=== PATIENT | female | born 1975 | race Caucasian/White ===

== ENCOUNTER → 2022-10-02 16:38 | Outpatient (CLI) | payer OTHER, SELFPAY | PROVIDERS: PCP Student in an Organized Health Care Education/Training Program; Visit Provider Specialist | DX: N30.10 Interstitial cystitis (chronic) without hematuria (principal); N81.2 Incomplete uterovaginal prolapse | CPT/HCPCS: 87086 ==

== ENCOUNTER 2022-12-12 12:21 | Day surgery (SDC) | payer OTHER, SELFPAY ==
[2022-12-10 11:58] VITALS: BMI 32.3
[2022-12-12] VITALS (14 sets, daily range): BP systolic 95–129; BP diastolic 34–72; PULSE 72–96; RESP 12–16; TEMP 34.9–36.7; O2SAT 92–99; BMI 33.1
--- NOTE | 2022-12-12 | PATH_ITS ---
[facility] Accession Number: [id number] No. of containers..01 Tissue . 01 Material submitted: . uterus - UTERUS, BILATERAL TUBES AND OVARIES . 01 Diagnosis: Uterus, Cervix, Left And Right Fallopian Tubes And Ovaries, Hysterectomy And Bilateral Salpingo-Oophorectomy: Cervix: Nabothian cysts. Endometrium: Proliferative with focal inflammation suggestive for breakdown changes. Myometrium: Leiomyoma without significant atypia. Left fallopian tube: Focal involvement by endometriosis. Left ovary: Multiple endometriotic cysts and single epidermoid cyst. Right fallopian tube: No significant pathologic abnormalities. Right ovary: Endometriotic cyst. [facility] 12/18/2022 1101 Local . 01 Electronically signed: . Clementine Roa MD, Pathologist NPI- [id number] . 01 Gross description: . The specimen is received in formalin labeled with the patient's name, , and uterus, bilateral tubes, and ovaries, and consists of an intact uterus (119 grams, 9.3 cm superior to inferior, 6.5 cm medial to lateral, and 4.5 cm anterior to posterior) with attached cervix (4.0 x 2.9 cm), left fallopian tube (3.6 x 0.8 cm), left ovary (19 grams, 4.6 x 3.2 x 2.4 cm), right fallopian tube (3.2 x 0.5 cm), and right ovary (3 grams, 2.6 x 1.6 x 1.4 cm). The ectocervix is delarosa and finely granular with a slit-like os measuring 1.3 cm in greatest dimension. The anterior paracervical margin is inked blue while the posterior paracervical margin is inked black. The serosa is slightly roughened with a hemorrhagic area measuring 2.9 cm in greatest dimension. The endocervical canal has delarosa herringbone mucosa and measures 2.5 cm in length. The endometrial cavity measures 1.5 cm from cornu to cornu, and 3.5 cm in length with red velvety endometrium. The myometrium is delarosa and trabecular with a single well-circumscribed white whorled nodule measuring 1.8 cm in greatest dimension with no hemorrhage or necrosis identified. . The left fallopian tube has wrinkled violaceous serosa with no cystic structures identified, and sectioning reveal an unremarkable stellate lumen. The left ovary has a delarosa, roughened external surface that is inked green, and sectioning reveals to large cystic structures with thin, smooth gonzales filled with red-brown semi-solid material, the first measures 2.1 x 2.1 x 1.7 cm while the second measures 1.7 x 1.6 x 1.5 cm. A third cystic structure is identified measuring 1.0 x 0.9 x 0.8 cm and is filled with yellow grumous material. The remaining cut surface is delarosa with no discrete lesions grossly identified. . The right fallopian tube has violaceous smooth serosa with no cystic structures identified, and sectioning reveals and unremarkable stellate lumen. The right ovary has a delarosa, smooth external surface, and sectioning reveals a thin, smooth-walled cystic structure filled with red-brown semi-solid material measuring 0.5 x 0.4 x 0.2 cm. The remaining cut surface is physiologic and unremarkable. . Journeyman Wireman sections are submitted as follows: A1: Anterior cervix. A2: Posterior cervix. A3: Anterior full thickness section. A4: Posterior full thickness section. A5: Serosa. A6: Journeyman Wireman nodule. A7: Left fallopian tube to include one-half of bisected fimbriae and cross sections. A8: Left ovary, first cystic structure. A9: Left ovary, second cystic structure. A10: Left ovary, third cystic structures and additional cut surface. A11: Right fallopian tube to include one-half of bisected fimbriae and cross-sections. A12: Right ovary. ([id number]) /MRV 12/13/2022 1233 Local . 01 Pathologist provided ICD-10: N83.209 . 01 CPT . 533032 Specimen Comment: A courtesy copy of this report has been sent to [phone] Performed at: 01 [facility] [address], [place], [place] [id number] MD Ramone Chowdhury MD Phone: [phone]
[2022-12-12] MEDS: LACTATED RINGERS 1,000 ML 100 ML IV ×2 (13:01→18:04)
--- NOTE | 2022-12-12 13:20 | PM.PREOP ---
Pre-operative Note COVID-19 Criteria for continued procedure: Expected advancement of disease process Interval Note History & Physical reviewed/Exam performed by Physician: Yes Changes to H&P: No
[2022-12-12] MEDS: SCOPOLAMINE 1 PATCH TOP (13:34)
[2022-12-12] MEDS: CEFAZOLIN 2 GM/100 ML PREMIX 100 ML IV (13:40)
--- NOTE | 2022-12-12 14:20 | SUR.OPER ---
Lithotomy on padded OR bed. [place] Pad Positioner under torso. Head on pillow, arms padded and tucked at sides. Legs secured in padded yellow fins stirrups.
[2022-12-12] MEDS: BUPIVACAINE 0.5% (PF) 30 ML, EPINEPHrine 0.15 MG INJ (14:33)
[2022-12-12] MEDS: LACTATED RINGERS 1,000 ML 42 ML IV (16:32)
--- NOTE | 2022-12-12 16:40 | P.OP_ITS ---
Operative Date/Time/Diagnoses Date of procedure: 12/12/22 Time of procedure: 16:40 Pre-op diagnosis: Urinary mixed incontinence, partial uterovaginal prolapse, pelvic pain, probable endometrioma on ultrasound Post-op diagnosis: same Procedure & Clinicians Procedure: Laparoscopic-assisted vaginal hysterectomy with bilateral salpingo oophorectomy with lysis of adhesions, TVT exact suburethral sling, posterior repair with perineoplasty Same procedure as scheduled: Yes Indications: Patient with mixed urinary incontinence, partial uterovaginal prolapse, probable endometrioma on ultrasound Surgeon: Alejandra Hitchcock Solutions Engineer: Lion Rivas Click Yes if Unassisted: No Anesthesia Type: General Operative Notes Findings: Normal appearing uterus, paraovarian cysts, left endometrioma, significant adhesions of the descending colon to the left adnexa, areas of peritoneal endometriosis on the bladder flap, hypermobile urethra, gaping introitus with mild rectocele. Closure Type: primary Specimen(s): other (Uterus, tubes, ovaries) Applied: catheter (Brownlee) and other (Vaginal packing) Estimated Blood Loss (mL): 150 Blood products transfused: none Procedure in detail: Patient was brought to the operating room where she was placed in [facility] stirrups and prepped and draped in the usual sterile fashion. A check system was reviewed prior to the beginning of the case. Pulsatile stockings were in pl rhys and functional throughout the case. Warming was in place. 2 g of Ancef were in prior to beginning of the case. A Brownlee catheter was placed. A single-tooth tenaculum was placed on the anterior lip of the cervix and the cervix dilated to a #6 Hegar dilator. The uterine manipulator was placed through the cervix into the uterus with the balloon inflated with 3 mL of air. The area of the umbilical incision and the 5 mm right and left lower quadrant incisions were injected with Marcaine. An incision was made with scalpel. The verries needle was placed into the abdomen and confirmed in the appropriate place with withdrawal on a syringe and then free flow of fluid down through the needle. The abdomen was insufflated with CO2. The needle was removed and a 5 mm trocar placed without difficulty. There did not appear to be any damage is placement of the trocar. The right and left lower quadrant incisions were made with the scalpel and the trochars placed without damage to internal structures. The power seal was used to cauterize and cut the extensive adhesions around the left tube and ovary. The power seal forceps were used to cauterize the infundibulopelvic ligaments. Sequential bites were taken along the broad ligament followed by the round ligaments on both sides. Sequential bites were taken down the broad ligaments. The uterine arteries were cauterized. Adequate hemostasis was noted. The procedure was switch to vaginal. A single-tooth tenaculum was placed on the posterior lip of the cervix and a colpotomy incision was made. The peritoneum was sutured to the posterior vaginal wall. The uterosacral ligaments were clamped cut and ligated with 0 Vicryl suture which was used throughout the rest the case unless otherwise indicated. Bites were taken of the cardinal ligament and cut and ligated. A scalpel was used to circumscribe the cervix and the bladder pushed superiorly. The bladder pillars were clamped cut and ligated. Keeping the bladder pushed superiorly sequential bites were taken of the cardinal and broad ligaments using the LigaSure to cauterize and cut. Anterior colpotomy incision was made and the bladder held away from the uterus. The rest of the attachments of the uterus including the broad ligament and the utero-ovarian ligaments were clamped and ligated with the LigaSure. The uterus was removed intact. The vaginal cuff was closed with [id number] sutures of 0 Vicryl suture. 15 mL of half percent Marcaine with epinephrine were diluted with 70 mL of saline 10 cc was injected around the mid urethra. An incision was made over the mid urethra with a scalpel. The incision was extended laterally. The suprapubic exit sites were marked with a marking pen. The needles attached to the sling were placed from the bottom up and left in place. The catheter was removed and 300 mL of saline were placed in the bladder and cystoscopy was performed. A 70?? scope followed by a 0?? scope were used to look at the bladder and the urethra was no damage apparent with placement of the needles. Both ureters were seen to be functional. The graft was brought up loosely under the mid urethra. With sharp pressure against the b ladder there was some leakage of urine. The plastic sheath was removed. The graft was cut under the skin of the suprapubic sites. Skin was closed with Steri-Strips. The vaginal incision was closed with 2-0 vicryl suture. Next a wedge shaped tissue was taken out of the posterior vaginal opening. The area over the rectocele was injected with a dilute solution of 1% lidocaine with epinephrine. An incision was made over the rectocele and enterocele with the scalpel. The dissection was undertaken laterally. 0 Vicryl suture was used to plicate over the rectocele. the vaginal incision was closed with 2-0 Vicryl suture. The perineal body was built up with interrupted 0 Vicryl sutures. The skin was closed with the 2-0 Vicryl suture. Vaginal packing was placed in the vagina and the Brownlee left in place. Counts of instruments and sponges were correct. The patient went to recovery room in good condition. Complications: none Post-operative Condition: stable Disposition: Acute Care Plan for aftercare: Patient will have vaginal packing and Brownlee catheter removed in a.m.. Home after bladder trial
[2022-12-12] MEDS: OXYCODONE/ACETAMINOPHEN 5/325 TABLET 1 TAB PO (17:11)
[2022-12-12] MEDS: KETOROLAC 30 MG/ML VIAL IV ×2 (18:03→23:52)
[2022-12-12] MEDS: ONDANSETRON 4 MG/2 ML INJ IV (18:03)
[2022-12-12] MEDS: diazePAM 5 MG TABLET 10 MG PO ×2 (18:11→23:55)
[2022-12-12] MEDS: ACETAMINOPHEN 325 MG TABLET 650 MG PO (18:53)
[2022-12-12] MEDS: guaiFENesin ER 600 MG TAB 1200 MG PO (18:53)
[2022-12-12] MEDS: DOCUSATE 100 MG CAPSULE 200 MG PO (21:16)
[2022-12-13] VITALS: BP 103/49; PULSE 91; RESP 16; TEMP 35.8; O2SAT 95
[2022-12-13] MEDS: LACTATED RINGERS 1,000 ML 100 ML IV (03:46)
[2022-12-13 04:00] VITALS: BP 94/48; PULSE 84; RESP 16; TEMP 35.6; O2SAT 93
[2022-12-13 05:08] LABS: Add Manual Diff / Slide Review NO; Basophils Absolute Auto 0 /uL (0-100); Basophils Percent Auto 0.1 % (0-2); Eosinophils Absolute Auto 0 /uL (0-450); Hematocrit 27.3 % (36-46); Hemoglobin 8.8 g/dL (12.0-16.0); Lymphocytes Absolute Auto 1900 /uL (1100-4500); Lymphocytes Percent Auto 14.6 % (25-40); Mean Corpuscular HGB Conc 32.3 % (30-36); Mean Corpuscular Hemoglobin 24.6 PG (26-34); Mean Corpuscular Volume 76.1 fL (80-100); Monocytes Absolute Auto 1000 /uL (0-900); Monocytes Percent Auto 7.6 % (3-14); Neutrophils Absolute Auto 9900 /uL (1500-7000); Neutrophils Percent Auto 77.7 % (50-75); Platelet Count 303 X10^3/uL (150-400); Red Blood Cell Count 3.59 X10^6/uL (4.0-5.2); Red Cell Distribution Width 16.4 % (11.6-14.8); White Blood Cell Count 12.7 X10^3/uL (4.5-11.0)
[2022-12-13] MEDS: ACETAMINOPHEN 325 MG TABLET 650 MG PO (05:31)
[2022-12-13] MEDS: PANTOPRAZOLE DR 20 MG TABLET PO (05:31)
[2022-12-13] MEDS: KETOROLAC 30 MG/ML VIAL IV (05:31)
[2022-12-13 08:00] VITALS: BP 108/37; PULSE 74; RESP 18; TEMP 36.5; O2SAT 97
--- NOTE | 2022-12-13 08:02 | P.DS_ITS ---
History of Present Illness History of Present Illness Date Patient Seen: 12/13/22 Time Patient Seen: 08:02 Chief complaint: Laparoscopic Assisted Vag Hysterectomy/Colporrhaph Narrative: Patient is postop laparoscopic-assisted vaginal hysterectomy, bilateral salpingo oophorectomy, TVT exact sling, posterior repair with perineoplasty. Discharge Providers Provider Discharge Date: 12/13/22 Primary care physician: Jen Hanley MD Discharge provider: Alejandra Hitchcock MD Summary Hospital Course Discharge Diagnosis: Status post laparoscopic-assisted vaginal hysterectomy bilateral salpingo oophorectomy, TVT exact retropubic suburethral sling, posterior repair with perineoplasty performed for pelvic pain, partial uterovaginal prolapse, mixed urinary incontinence, endometrioma by ultrasound Postoperative anemia Hospital Course: Patient did well postoperatively. She denies nausea. She is passing gas. Pain is under control. Her vaginal packing was removed and and Brownlee catheter removed. Patient will get IV iron therapy as she can not tolerate oral iron due to her gastric bypass surgery. Patient passed her bladder trial. Patient will be discharged home. Status at Discharge Cognitive/behavioral status at discharge: oriented Functional status at discharge: independent ambulation Overall status at discharge: patient is progressing back to baseline Time Spent with Patient Time spent: Less than 30 minutes Exam Vital Signs (past 8 hours): - 12/13/22 04:00 Temperature 96.1 F L Pulse Rate 84 Respiratory Rate 16 Blood Pressure 94/48 L Pulse Oximetry 93 Oxygen Flow Rate 0 Oxygen Delivery Method Room Air Oxygen Flow Rate 0 Narrative Exam Narrative: Abdomen is soft, nontender. Incisions are clean, dry, intact. Minimal vaginal bleeding. Extremities without edema and nontender Objective Labs 12/13/22 04:22 Labs: Laboratory Results - last 24 hr 12/13/22 04:22 WBC 12.7 H RBC 3.59 L Hgb 8.8 L Hct 27.3 L MCV 76.1 L MCH 24.6 L MCHC 32.3 RDW 16.4 H Plt Count 303 Neut % (Auto) 77.7 H Lymph % (Auto) 14.6 L Benton % (Auto) 7.6 Eos % (Auto) 0.0 L Baso % (Auto) 0.1 Neut # (Auto) 9900 H Lymph # (Auto) 1900 [place]enton # (Auto) 1000 H Eos # (Auto) 0 Baso # (Auto) 0 PFSH Surgical History (Updated 12/12/22 @ 16:38 by Alejandra Hitchcock MD) History of bariatric surgery History of endometrial ablation Social History household members: spouse Smoking Status: Never smoker alcohol intake: never Discharge Assessment & Plan Assessment and Plan Assessment: Postoperative laparoscopic-assisted vaginal hysterectomy with bilateral salpingo oophorectomy, retropubic suburethral sling, posterior repair. Postoperative anemia Plan of Treatment: Patient will get IV iron therapy as she can not tolerate oral iron due to her gastric bypass surgery. Patient passed her bladder trial Patient has postoperative follow-up appointment scheduled and postoperative pain medicine and estradiol for hormone replacement Discharge Plan Discharge Plan Patient Disposition: Home Discharge orders & Medications Discharge Orders: Discharge (Order); Ordered 12/13/22 Ordered By: Alejandra Hitchcock Prescriptions: Continued multivitamin tablet 1 tab PO DAILY Mucinex 1,200 mg tablet extended release 12hr 1,200 mg PO QAM methylphenidate HCl 40 mg cap,ER sprinkle,biphasic 40-60 40 mg PO DAILY Qty: 30 0RF diazepam 10 mg tablet 10 mg PO TID PRN (Reason: anxiety) Qty: 90 1RF lorazepam 1 mg tablet 1 mg PO DAILY PRN (Reason: anxiety) Qty: 30 0RF estradiol 1 mg tablet 1 mg PO DAILY Qty: 90 3RF oxycodone 5 mg tablet 5 mg PO Q4H PRN (Reason: pain) Qty: 10 0RF fluorouracil 5 % cream 1 applic topical ONCE fluticasone propionate 50 mcg/actuation [place],Suspension 1 spray INTRANASAL DAILY Rx Instructions: administer into each nostril atorvastatin 20 mg Tablet 40 mg PO DAILY acetaminophen [Acetaminophen Extra Strength] 500 mg Tablet 500 mg PO Q6H PRN (Reason: Pain (Scale Score 1-3)) omeprazole 20 mg Capsule,Delayed Release(Dr/Ec) 20 mg PO DAILY Follow up/Referrals: Jen Hanley MD [Primary Care Provider] - Alejandra Hitchcock MD [Physician] - 2 Weeks (Patient has follow-up appointment scheduled on 12/26/2022) Diet/Activity/Treatments Diet: Regular Activity: Nothing in vagina or lifting over 10 lb for 6 weeks Skin/Wound/Dressing Care Report to your healthcare provider any signs of infection, such as:: chills, fever and increased pain Dressing: May remove Band-Aids today. Leave Steri-Strips in place for 1 week. Can get wet just pat dry. In one-week get wet and rub off Visit Report/Discharge Packet Instructions: DI for Hysterectomy, DI for Laparoscopy Stand Alone Forms: Patient Portal/API, Surgery Discharge Discharge Data Primary Care Provider: Jen Hanley Attending Provider: Alejandra Hitchcock
[2022-12-13 08:08] VITALS: O2SAT 96
[2022-12-13] MEDS: guaiFENesin ER 600 MG TAB 1200 MG PO (08:38)
[2022-12-13] MEDS: diazePAM 5 MG TABLET 10 MG PO (08:38)
[2022-12-13] MEDS: DOCUSATE 100 MG CAPSULE 200 MG PO (08:38)
[2022-12-13] MEDS: SUCROSE IV (08:39)
[2022-12-13] MEDS: SODIUM FERRIC GLUCONAT IV (08:39)
[2022-12-13] MEDS: FLUTICASONE 120 SPRAY/16 GM SPRAY.SUSP NASAL (08:39)
[2022-12-13] MEDS: SODIUM CHLORIDE 0.9% IV (08:39)
--- NOTE | 2022-12-13 08:59 | CM.DANOTE ---
DCP Assessment Note: Patient is a 47yo female here following planned vaginal hysterectomy with Dr. Hitchcock on 12/12/22. PCP: Jen Hanley Payer: prime and self pay PERSON INVESTIGATOR reviewed EMR. PERSON INVESTIGATOR entered room and introduced self and role. Patient was sitting up in bed, appeared A/Ox4, and was accompanied by spouse Kuldip ([phone]). Patient was chatty and pleasant throughout interaction. Patient reported she is independent with ADLs at baseline, however she reports she is agoraphobic and lazy and doesn't do much or leave the house much. Patient does not drive by choice, her primarily supports her with transportation needs. Patient reports she was told she needs to void and then she can d/c home. Reports no other needs at this time. Plan: patient will d/c home with spouse post voiding. Transport in POV with spouse. No other needs identified at this time. CM team will continue to follow as needed. MARCY Frances Discharge Planning/Care Management CM Discharge Assessment Start: 12/13/22 08:54 Freq: Status: Active Protocol: Document 12/13/22 08:54 SL (Rec: 12/13/22 08:58 SL [id number]) Discharge Planning Assessment Assigned Outside Rigger MARCY Carter DPOA/Assigned Designee Name Kuldip Carbajal (spouse) Contact Information [phone] Advance Directives? No History Provided By Patient,Family Member,Medical Record Prior Living Arrangements House Household Members spouse Type of transporation used prior to Relies on Others admit Comment spouse drives her everywhere Independent with ADL's Yes Is patient alert and oriented? Yes Barriers to Discharge No Comment Patient needs to void before she is able to d/c Discharge Plan Home Transportation Arrangement transport with family in POV Whiteboard Updated in Patient Room with Yes name and ext. # of Outside Rigger Review Status In Process Next Review Type Continued Stay Review Pre-Anesthesia Assessment Start: 12/10/22 11:57 Freq: Status: Complete Protocol: Document 12/10/22 11:58 TC (Rec: 12/10/22 12:13 TC [id number]) Pre-Anesthesia Assessment Patient Information Reviewed Via Chart Review H&P Completed Within 30 Days Yes Primary Care Provider Jen Hanley Medical Clearance Received Not Applicable Seen Specialist in Last 12 Months Yes Specialist Seen Ground Services Instructor,Oncologist, Urologist,Other Comment psychiatry Primary Language Bulgarian Oracle Scm Consultant Required No Height 160.7 cm Weight 83.368 kg Body Mass Index (BMI) 32.3 Anesthesia Review Requested No Medical Sales Consultant No Smoking Status Never smoker Substance Use Type marijuana Comment hx use of gummies History of Falling (Recent or History of No ) Patient is completely paralyzed or No completely immobile Is patient on oxygen? No Hx Sleep Apnea No Currently Taking a Beta Taty No Anti-Coagulant Therapy No Has a Blacking Machine Operator No Cardiac Testing No Hx Pacemaker/ICD No Pacemaker Rep Required? No Cardiac Clearance Received Not Applicable Genitourinary Symptoms Dribbling Chronic UTI Yes Bladder Pattern Incontinent, Stress,Urgency Urinary Catheter Present No Hx Urinary Self Catheterization No Diabetes No Patient No Lactating No Marital Status Lives With spouse Support System Family Does the Patient Have Assistance After Yes Surgery Patient Discharge Plan Description Return Home Who Can We Speak to About Patient's Care family Health Care Proxy/Next of Kin Solomon (spouse) Health Care Proxy Emergency Contact Name Solomon (spouse) Emergency Contact Advance Directives? No Power of Mine Safety Director No
--- NOTE | 2022-12-13 11:23 | PC.NURSE ---
Discharge note: Pt A&Ox4, denies pain at this time. Brownlee catheter d/c'd after provider removed vaginal packing. Iron IV administered (see MAR). Pt up to bathroom, able to void 50, post void residual 90mL, provider notified. Pt able to void 100mL approximately 60 mins later. Provider okayed pt to leave. Provider aware of WBC and H/H. Pt encouraged to call if she develops fever, chills, s/s of infection or increased pain. Pt verbalized understanding. IV discontinued. Education provided to pt. Pt wheeled via WC with PCT to private vehicle with spouse at approximately 1115.
== END 2022-12-13 11:15 | disposition home or self-care (01) ==
LOC: OR 12:22 → AC 16:34
PROVIDERS: PCP Student in an Organized Health Care Education/Training Program; Referring Provider Specialist; Visit Provider Specialist
PROC: 0UT9FZZ Resection of Uterus, Via Natural or Artificial Opening With Percutaneous Endoscopic Assistance (ICD-10-PCS; CPT 58552; principal; 2022-12-12 13:30)
PROC: (CPT 58552; 2022-12-12 13:30)
PROC: 0TSD0ZZ Reposition Urethra, Open Approach (ICD-10-PCS; CPT 58552; 2022-12-12 13:30)
DX: N81.2 Incomplete uterovaginal prolapse (principal); N39.46 Mixed incontinence; N36.41 Hypermobility of urethra; N73.6 Female pelvic peritoneal adhesions (postinfective); N80.399 Endometriosis of the pelvic peritoneum, other specified sites, unspecified depth; N88.8 Other specified noninflammatory disorders of cervix uteri; D25.9 Leiomyoma of uterus, unspecified; N80.202 Endometriosis of left fallopian tube, unspecified depth; N80.102 Endometriosis of left ovary, unspecified depth; D27.1 Benign neoplasm of left ovary; D27.0 Benign neoplasm of right ovary
CPT/HCPCS: 58552; 57288; 36415; 57250; 85025; C1771; J0171; J0690; J1100; J1170; J1885; J2250; J2405; J2704; J2916; J3010